=== PATIENT | female | born 1965 | race Caucasian/White ===

== ENCOUNTER 2016-10-06 09:26 | Emergency (ER) | payer OTHER ==
[~2016-10-06] VITALS: Ht 175.3 cm; Wt 65.3 kg
[~2016-10-06 09:26] MED LIST: ATARAX,VISTARIL50 MG PO; BENADRYL50 MG PO; MEDROL DOSEPAK4 MG PO; PREDNISONE20 MG PO
[2016-10-06] MEDS ORDERED: ATARAX,VISTARIL50 MG PO (10:08)
[2016-10-06 10:16] VITALS: BP 138/74
== END 2016-10-06 10:21 | disposition home or self-care (01) ==
LOC: EME 09:26 → EXP 09:26
DX: L23.7 Allergic contact dermatitis due to plants, except food (principal); Z88.6 Allergy status to analgesic agent
CPT/HCPCS: 99281; 99283

== ENCOUNTER 2017-12-16 16:12 | Emergency (ER) | payer OTHER ==
[~2017-12-16] VITALS: Ht 175.3 cm; Wt 66.5 kg
[2017-12-16 18:37] LABS: APPEARANCE CLEAR ((CLEAR)); BILIRUBIN NEGATIVE; BLOOD NEGATIVE; COLOR YELLOW ((YELLOW)); GLUCOSE (STRIP) NEGATIVE; KETONES NEGATIVE; LEUKOCYTES NEGATIVE; NITRITE NEGATIVE; PROTEIN (STRIP) 30; SPECIFIC GRAVITY 1.014 (1.000-1.030); UCUL ADDED? NO; UROBILINOGEN 0.2 MG/DL (0.2-1.0)
[2017-12-16 18:45] LABS: HEMATOCRIT 39.1 % (36.0-46.0); HEMOGLOBIN 13.4 G/DL (11.9-15.5); MCH 32.8 PG (29.0-34.0); MCHC 34.3 G/DL (30.0-36.0); MCV 95.8 FL (83-99); PLATELET COUNT 213 K/uL (156-360); RBC DIS.WIDTH-SD 41.6 % (39-53); RED BLOOD COUNT 4.08 M/uL (3.80-5.20); WHITE BLOOD COUNT 8.8 K/uL (4.1-10.2)
[2017-12-16 19:13] LABS: ALBUMIN 4.1 g/dL (3.2-4.8); CHLORIDE 110 mEq/L (99-109); POTASSIUM 3.8 mEq/L (3.7-5.4); SODIUM 140 mEq/L (136-147)
[2017-12-16 19:15] LABS: GLUCOSE 64 mg/dL (70-99)
[2017-12-16 19:16] LABS: TOTAL PROTEIN 6.9 g/dL (6.4-8.3)
[2017-12-16 19:17] LABS: TOTAL BILIRUBIN 0.5 mg/dL (0.0-1.0)
[2017-12-16 19:19] LABS: ALKALINE PHOSPHATASE 38 IU/L (3-129); GFR ESTIMATE (CALCULATED) > 59 mL/min/
[2017-12-16 19:20] LABS: UREA NITROGEN (BUN) 12 mg/dL (9-23)
[2017-12-16 19:21] LABS: AST (GOT) 30 IU/L (2-34)
[2017-12-16 19:22] LABS: ALT (GPT) 19 IU/L (3-49)
[2017-12-16 19:29] LABS: QUANTITATIVE HCG < 4.0 MIU/ML
[2017-12-16 20:34] LABS: LIPASE 15 U/L (1.0-51.0)
[2017-12-16] MEDS ORDERED: MULTI-VITAMIN1 EAC4 PO (20:55)
[2017-12-16] MEDS ORDERED: ST. JOHN'S WOR300 M1 PO (20:56)
[2017-12-16] MEDS ORDERED: POTASSIUM-9999 MG PO (20:57)
[2017-12-16] MEDS ORDERED: IRON325 M1 PO (20:57)
[2017-12-16] MEDS ORDERED: MACA500 MG PO (20:58)
[2017-12-16] MEDS ORDERED: FISH OIL 1,0001 EAC7 PO (20:59)
[2017-12-16] MEDS ORDERED: BENTYL20 MG PO (22:03)
[2017-12-16] MEDS ORDERED: ZOFRAN4 MG PO (22:04)
[2017-12-16 23:09] VITALS: BP 110/71
[2017-12-17] MEDS ORDERED: ZANTAC150 MG PO (13:08)
[2017-12-17] MEDS ORDERED: TYLENOL ARTHRI650 MG PO (13:08)
[2017-12-17] MEDS ORDERED: FLONASE16 G1 BOTH NARES (13:08)
[2017-12-17] MEDS ORDERED: UNISOM SLEEP AI25 MG PO (13:09)
[2017-12-17] MEDS ORDERED: MELATONIN10 M1 PO (13:09)
[2017-12-17] MEDS ORDERED: MELATONIN + L-TH3 MG PO (13:10)
[2017-12-17] MEDS ORDERED: FAT BURNER PO (13:11)
== END 2017-12-16 23:09 | disposition home or self-care (01) ==
LOC: EME 16:12
PROVIDERS: Nurse Practitioner Family
DX: R10.12 Left upper quadrant pain (principal); Z88.6 Allergy status to analgesic agent; Z88.5 Allergy status to narcotic agent
CPT/HCPCS: 74177; 80053; 81003; 83690; 84702; 85027; 99281; 99284; J1885; J2405; J3010; J7030

== ENCOUNTER 2017-12-17 08:58 | Day surgery (SDC) | payer OTHER ==
[~2017-12-17] VITALS: Ht 175.3 cm; Wt 67.1 kg
[~2017-12-17 08:58] MED LIST changes: +BENTYL20 MG PO; +FISH OIL 1,0001 EAC7 PO; +IRON325 M1 PO; +MACA500 MG PO; +MULTI-VITAMIN1 EAC4 PO; +POTASSIUM-9999 MG PO; +ST. JOHN'S WOR300 M1 PO; +ZOFRAN4 MG PO
[2017-12-17 09:41] LABS: APPEARANCE CLEAR ((CLEAR)); BILIRUBIN NEGATIVE; BLOOD NEGATIVE; COLOR YELLOW ((YELLOW)); GLUCOSE (STRIP) NEGATIVE; KETONES 5; LEUKOCYTES NEGATIVE; NITRITE NEGATIVE; PROTEIN (STRIP) NEGATIVE; SPECIFIC GRAVITY 1.026 (1.000-1.030); UCUL ADDED? NO; UROBILINOGEN 0.2 MG/DL (0.2-1.0)
[2017-12-17 10:01] LABS: BASOPHIL (%) 0.3 % (0-1); EOSINOPHIL (%) 0.1 % (0-5); HEMATOCRIT 37.6 % (36.0-46.0); HEMOGLOBIN 12.8 G/DL (11.9-15.5); IMMATURE GRANULOCYTE (%) 0.5 % (0.0-0.7); LYMPHOCYTE COUNT 0.8 K/uL (1.0-2.8); MCH 32.8 PG (29.0-34.0); MCV 96.4 FL (83-99); MONOCYTE (%) 11.2 % (3-12); MONOCYTE COUNT 1.2 K/uL (0-0.8); NEUTROPHIL (%) 80.9 % (45-76); NEUTROPHIL COUNT 8.8 K/uL (1.8-6.4); PLATELET COUNT 172 K/uL (156-360); RBC DIS.WIDTH-CV 12.2 % (11.8-14.6); RBC DIS.WIDTH-SD 42.8 % (39-53); WHITE BLOOD COUNT 10.8 K/uL (4.1-10.2)
[2017-12-17 10:36] LABS: ALKALINE PHOSPHATASE 39 IU/L (3-129); ALT (GPT) 15 IU/L (3-49); AST (GOT) 17 IU/L (2-34); CHLORIDE 107 MEQ/L (99-109); CREATININE 0.9 MG/DL (0.6-1.3); GFR ESTIMATE (CALCULATED) > 59 mL/min/; POTASSIUM 4.4 MEQ/L (3.7-5.4); SODIUM 141 MEQ/L (136-147); TOTAL BILIRUBIN 0.9 MG/DL (0.0-1.0); TOTAL PROTEIN 6.2 G/DL (6.4-8.3); UREA NITROGEN (BUN) 10 mg/dL (9-23)
[2017-12-17 10:38] LABS: GLUCOSE 84 mg/dL (70-99)
[2017-12-17] MEDS ORDERED: TYLENOL ARTHRI650 MG PO (13:08)
[2017-12-17] MEDS ORDERED: FLONASE16 G1 BOTH NARES (13:08)
[2017-12-17] MEDS ORDERED: ZANTAC150 MG PO (13:08)
[2017-12-17] MEDS ORDERED: MELATONIN10 M1 PO (13:09)
[2017-12-17] MEDS ORDERED: UNISOM SLEEP AI25 MG PO (13:09)
[2017-12-17] MEDS ORDERED: MELATONIN + L-TH3 MG PO (13:10)
[2017-12-17] MEDS ORDERED: FAT BURNER PO (13:11)
[2017-12-17 17:52] VITALS: BP 102/54; BP 115/60
[2017-12-17 23:18] VITALS: BP 116/55
[2017-12-18 03:49] VITALS: BP 100/55
[2017-12-18 08:20] VITALS: BP 104/60
[2017-12-18 08:57] LABS: BASOPHIL (%) 0.3 % (0-1); EOSINOPHIL (%) 0.2 % (0-5); HEMATOCRIT 33.4 % (36.0-46.0); HEMOGLOBIN 11.1 G/DL (11.9-15.5); IMMATURE GRANULOCYTE (%) 0.6 % (0.0-0.7); LYMPHOCYTE (%) 7.1 % (15-42); LYMPHOCYTE COUNT 0.6 K/uL (1.0-2.8); MCH 32.2 PG (29.0-34.0); MCHC 33.2 G/DL (30.0-36.0); MCV 96.8 FL (83-99); MONOCYTE (%) 8.1 % (3-12); MONOCYTE COUNT 0.7 K/uL (0-0.8); NEUTROPHIL (%) 83.7 % (45-76); NEUTROPHIL COUNT 7.2 K/uL (1.8-6.4); PLATELET COUNT 134 K/uL (156-360); RBC DIS.WIDTH-CV 12.4 % (11.8-14.6); RBC DIS.WIDTH-SD 43.2 % (39-53); RED BLOOD COUNT 3.45 M/uL (3.80-5.20); WHITE BLOOD COUNT 8.6 K/uL (4.1-10.2)
[2017-12-18] MEDS ORDERED: AUGMENTIN875 MG PO (09:22)
[2017-12-18] MEDS ORDERED: FLORASTOR250 MG PO (09:22)
[2017-12-18] MEDS ORDERED: ULTRAM50 MG PO (09:22)
[2017-12-18] MEDS ORDERED: COLACE100 MG PO (09:22)
[2017-12-18 16:50] VITALS: BP 117/66
== END 2017-12-18 16:51 | disposition home or self-care (01) ==
LOC: EME 08:58 → SDC 16:28 → 2EASTP 16:29 → ENRESERV 16:46 → ENPENDDIS 12-18 14:48 → 2EASTP 12-18 16:51
PROVIDERS: Emergency Medicine; Physician Assistant
PROC: 0DTJ4ZZ Resection of Appendix, Percutaneous Endoscopic Approach (ICD-10-PCS; principal; 2017-12-17)
DX: K35.2 Acute appendicitis with generalized peritonitis (principal); K66.0 Peritoneal adhesions (postprocedural) (postinfection); Z88.5 Allergy status to narcotic agent; Z88.6 Allergy status to analgesic agent
CPT/HCPCS: 80053; 81003; 81025; 85025; 88304; 93005; 99281; 99284; G0378; J1100; J1170; J1885; J2250; J2405; J2710; J2765; J3010; J7030; J7120; J7643; S0074